=== PATIENT | male | born 1975 | race Caucasian/White ===

== ENCOUNTER 2024-11-27 07:18 | Day surgery (SDC) | payer BC ==
[~2024-11-27 07:18] MED LIST: Sodium Chloride 0.9% 10 ML Syringe FLUSH PRN
[2024-11-27] MEDS ORDERED: Midazolam 1 MG/ML 2 ML SDV IV ONE (07:19)
[2024-11-27] MEDS ORDERED: Propofol 200 MG/20 ML SDV IV ONE (07:19)
[2024-11-27] MEDS ORDERED: fentaNYL 100 MCG/2 ML SDV IV ONE (07:19)
[2024-11-27] MEDS: Lactated Ringers 1,000 ML IV SCH (08:08)
[2024-11-27] MEDS: Simethicone Drops 40 MG/0.6 ML 30 ML Bottle ONE (08:51)
== END 2024-11-27 10:10 | disposition home or self-care (01) ==
LOC: FB.SDS 07:18
PROVIDERS: ATTEND Surgery
DX: Z12.11 Encounter for screening for malignant neoplasm of colon (principal); K42.0 Umbilical hernia with obstruction, without gangrene; Z87.891 Personal history of nicotine dependence
CPT/HCPCS: 45378; A9270; J2250; J2704; J3010; J7120; 00812